=== PATIENT | male | born 1990 | race Caucasian/White ===

== ENCOUNTER 2022-12-27 11:50 | Emergency (ER) | payer OTHER, SELFPAY ==
--- NOTE | ~2022-12-27 | XR_ITS ---
EXAMINATION: XR KNEE, RIGHT CLINICAL INFORMATION: Right knee pain. COMPARISON: None available. TECHNIQUE: Four views of the right knee. FINDINGS: Alignment is anatomic. Joint spaces are maintained. 6 cm sclerotic focus posterior aspect of the proximal tibia. No bone destruction. No displaced fracture. Small suprapatellar joint effusion. XR/XR knee RT 3V IMPRESSION: No acute abnormality. 6 cm cortically based sclerotic focus posterior lateral tibia without underlying bone destruction. This is incompletely evaluated. If clinically indicated cross-sectional imaging could be performed.
[2022-12-27 12:39] VITALS: BP 150/105; PULSE 85; RESP 17; TEMP 36.8; O2SAT 98; BMI 33.4
--- NOTE | 2022-12-27 12:39 | ED_ITS ---
HPI - General Adult General Chief complaint: Extremity Problem Stated complaint: R knee inj Time Seen by Provider: 12/27/22 12:52 Source: patient Mode of arrival: ambulatory Limitations: no limitations History of Present Illness HPI narrative: 32-year-old male presents to ED for right medial knee pain. Patient states injuring knee yesterday while playing football. Patient states he was tackling the knee. Patient states pain on range of motion of knee. Patient states no fever, chills, obvious swelling or redness. Related Data Previous Rx's Medication Instructions Recorded naproxen 500 mg tablet 500 mg PO BID PRN pain 7 days #14 12/27/22 tabs prednisone 20 mg tablet 40 mg (2 x 20 mg) PO DAILY 5 days 12/27/22 #10 tabs Allergies Allergy/AdvReac Type Severity Reaction Status Date / Time No Known Allergies Allergy Verified 12/27/22 12:41 Review of Systems 2 Review of Systems: Right knee pain Yes all other systems are reviewed and are negative Physical Exam ED Vital Signs: Vital Signs - 24 hr 12/27/22 12:39 Temperature 98.3 F Pulse Rate 85 Respiratory Rate 17 Blood Pressure 150/105 H Pulse Oximetry 98 Oxygen Delivery Method Room Air BMI result Body Mass Index 33.4 Const General: cooperative, healthy appearing, comfortable, no acute distress, well developed, alert and awake Orientation/consciousness: oriented to person, oriented to place, oriented to time and patient oriented x3 HENMT Head: Yes normal to inspection, Yes No palpable skull fracture present, Yes normocephalic, Yes atraumatic and No abrasion Eyes General: appearance normal, both eyes and all related structures Neck Neck: Yes normal visual inspection, Yes full ROM, Yes no lymphadenopathy, Yes no meningeal signs, Yes trachea midline, Yes supple, No anterior neck swelling and No tender Chest Chest palpation & inspection: normal inspection of the chest and normal palpation of entire chest wall Resp Effort & Inspection: normal respiratory effort and able to speak in complete sentences Auscultation: clear to auscultation bilaterally Cardio Jugular venous distension: no JVD Heart sounds: S1 normal heart sound present and S2 normal heart sound present GI Inspection: Yes normal to inspection and No abdominal wall ecchymosis Palpation (GI): Soft to palpation, not firm, nontender, no guarding and not rigid General: No CVA tenderness and Yes no CVA tenderness Back/Spine/Pelvis Back: no CVA tenderness, No CVA tenderness and No back tenderness Skin General skin exam: no rashes or lesions noted, elasticity normal and turgor normal Neuro General: oriented to person, oriented to place, oriented to time, patient oriented x3, tone normal, moves all extremities, Normal light touch and pain sensation, no meningeal signs, no focal motor deficits, CN's II-XI intact bilaterally and normal sensation to monofilament Extrem General: Yes normal to inspection and Yes full ROM Knee images: 2 1. positive for tenderness on palpation and range of motion. Negative for crepitus, ecchymosis, deformity, swelling, or elasticity. Negative for redness or stiffness. Rest of extremity normal and motor/ neuro/vascular exam intact Psych Appearance: grossly normal, well kempt and not disheveled Course Course Course Narrative: RME performed by Nohemi Pearson PA-C. Patient is a 32 year old assigned male at presenting to the emergency department with right knee pain. Patient injured his knee climbing down stairs in June of 2022, felt a pop. Thought it was getting some what better and started his football season, got hit, felt / heard another pop in his right knee, and is now having worse pain. Imaging ordered. Patient placed back in the waiting room pending room availability and results. Medical Decision Making Medical Decision Making MDM Narrative: 32-year-old male presents to ED for right knee injury from playing football yesterday. Patient states hearing a pop. Patient states injury knee before in July but never follow up with the primary care per provider and never got imaging done in July. patient denies any head trauma or trauma to the body. X-ray negative for fractures but shows small suprapatellar joint effusion indicate possible meniscus ligament injury. Also sclerotic lesion. Patient made aware of sclerotic lesion of the posterior tibia. Patient knee already placed in his own Ron wrap. Patient given trust crutches and pain medication Differential Diagnosis Differential Diagnoses: The differential diagnosis associated with the presentation includes ( knee fracture, knee dislocation, patellar fracture, septic knee, knee sprain) Admission/Observation Consideration of admission/observation: Escalation of care including admission/observation considered Independent Interpretation I performed an independent interpretation of an: Plain X-Ray Radiology Impression Discussion of test interpretation with radiology: I have reviewed the radiologist's reading. External Record Review External record reviewed: Other (Prior ED visit) Prescription Management I considered prescription management with: Pain Medication Discharge Plan Discharge Clinical Impression: Knee sprain Patient Disposition: Home, Self-Care Instructions: Knee Sprain (ED), Crutch Instructions (ED), How to Use an Elastic Bandage (ED), Swollen Knee Joint (ED), R.I.C.E. Treatment (ED) Additional Instructions: you need to follow-up with orthopedic surgeon for MRI to evaluate for possible meniscus ligament tear. Also you need evaluation for sclerotic lesion seen on tibia as seen on x-ray. Continue using knee brace with elevation. He will be given crutches. Return to the ED immediately for any knee swelling, redness, fever, chills, stiffness, inability to walk, or any other concerning symptoms. Prescriptions: New naproxen 500 mg tablet 500 mg PO BID PRN (Reason: pain) 7 Days Qty: 14 0RF prednisone 20 mg tablet 40 mg PO DAILY 5 Days Qty: 10 0RF Referrals: [facility] [Provider Group] ( Right knee sprain. Possible meniscus ligament tear. X-ray shows sclerotic lesion on posterior tibia) Stand Alone Forms: Work/School Release Discharge Date/Time: 12/27/22 15:11 Print Language: Upper Sorbian
--- NOTE | 2022-12-27 15:11 | PC.NURSE ---
Given crutches with instructions. Patient uses well (has had h/o crutches in past)
== END 2022-12-27 15:11 | disposition home or self-care (01) ==
PROVIDERS: Emergency Provider Emergency Medicine; PCP Family Medicine
DX: S83.91XA Sprain of unspecified site of right knee, initial encounter (principal); X58.XXXA Exposure to other specified factors, initial encounter; Y93.61 Activity, american tackle football; Y92.321 Football field as the place of occurrence of the external cause; Y99.9 Unspecified external cause status
CPT/HCPCS: 73562; 99281; 99283

== ENCOUNTER 2023-04-30 09:38 | Emergency (ER) | payer OTHER, SELFPAY ==
[2023-04-30] VITALS (7 sets, daily range): BP systolic 123–141; BP diastolic 74–84; PULSE 64–90; RESP 16–18; TEMP 36.6–36.8; O2SAT 95–98; BMI 30.7
--- NOTE | ~2023-04-30 | CT_ITS ---
EXAMINATION: CT CERVICAL SPINE WITHOUT CONTRAST CLINICAL INFORMATION: Neck pain. COMPARISON: None available. TECHNIQUE: 2 mm thin axial and reformatted 2 mm thin sagittal and coronal images of cervical spine were obtained. DLP 806. This CT examination was performed using dose optimization techniques as appropriate, variously including the following: *Automated exposure control *Adjustment of mA and/or kV according to patient size (this includes techniques or standardized protocols for targeted exams where dose is matched to indication/reason for exam; i.e. extremities or head) *Use of iterative reconstruction technique DLP: 806 mGy-cm FINDINGS: There is mild straightening of cervical lordosis. The vertebral heights, alignment and disc heights are normal. There is mild deviation of cervical spine 2 left likely positional or scoliotic. The craniovertebral junction and the C1-C2 alignment is normal. The facet joints are symmetrical and normal.. There is mild rotary subluxation at the C1-C2 alignment. No visible acute fracture or dislocation seen. Prevertebral and paravertebral soft tissues are normal. Lung apices are clear. CT/CT cervical spine wo IV con IMPRESSION: Mild rotary subluxation C1-C2 alignment. No visible acute fracture or dislocation seen. Fleischner guidelines were followed.
--- NOTE | 2023-04-30 10:09 | ED.NECK ---
HPI - Neck Pain/Injury General Chief Complaint: Neck Pain/Injury Stated Complaint: WOKE UP W/NECK PAIN ON MOVEMENT PER EMS Time Seen by Provider: 04/30/23 10:20 Source: patient and RN notes reviewed Mode of arrival: ambulatory Limitations: no limitations History of Present Illness HPI Narrative: This is a 33-year-old male presenting to the emergency department for evaluation of left-sided neck pain since this morning. Patient states that he fell asleep on the couch and awoke at 4:00 a.m. in the morning with a stiff neck, he states that he stretched his neck, felt a pop, and fell back asleep. He awoke with severe left-sided neck pain worsening with movement. He states that he has had no recent trauma or injury to his neck. He states that he tried stretching his neck which did not help. He denies any similar symptoms in the past. Denies any headaches, fevers, rashes, photophobia, drowsiness, recent illness, dizziness, chest pain, shortness breast, abdominal pain, nausea, vomiting or diarrhea. Denies any numbness or tingling. No weakness. No other complaints or concerns at this time. MD complaint: neck pain Onset (ago): hour(s) Place: home Radiation: left lateral Severity: moderate Duration: constant Relieving factors: none Exacerbating factors: medication Associated symptoms: none Treatments prior to arrival: none Related Data Previous Rx's Medication Instructions Recorded naproxen 500 mg tablet 500 mg PO BID PRN pain 7 days #14 12/27/22 tabs prednisone 20 mg tablet 40 mg (2 x 20 mg) PO DAILY 5 days 12/27/22 #10 tabs Allergies Allergy/AdvReac Type Severity Reaction Status Date / Time No Known Allergies Allergy Verified 04/30/23 10:37 Review of Systems Review of Systems: Yes all other systems are reviewed and are negative Constitutional: Constitutional: Reports as per [facility] Past Medical History Attestation statement: The following information was validated with the patient. Social History Social History Alcohol intake: current Alcohol intake frequency: 0-2 drinks per day Alcohol type: beer Smoked in Last 30 Days: No Use of substances other than those prescribed or required for medical reasons: No Advance Directives: No Advance Directives Information Provided: No Physical Exam Vital Signs: Vital Signs: Last Vital Signs Temp 98 F 04/30/23 17:19 Pulse 74 04/30/23 17:19 Resp 18 04/30/23 17:19 BP 132/82 04/30/23 17:19 Pulse Ox 96 04/30/23 17:19 O2 Del Method Room Air 04/30/23 17:19 BMI result Body Mass Index 30.7 Const: General: cooperative, comfortable and no acute distress Orientation/consciousness: patient oriented x3 Limitations: no limitations HEENT: Head: Yes normal to inspection, Yes normocephalic and Yes atraumatic Ears: hearing grossly normal bilaterally General nose exam: Normal external nose present Face and sinus: Yes normal facial exam Mouth: Normal oral and palatal mucosa present, oropharynx normal and moist mucous membranes Throat: Yes posterior oropharynx normal Eyes: General: appearance normal, both eyes and all related structures Eyelids: Yes eyelids normal Conjunctivae: conjunctivae normal Sclerae: sclerae normal Pupils: Equal, round and reactive pupils present EOM: EOMs intact bilaterally Neck: Other: No midline cervical spine tenderness to palpation, tenderness to palpation along the trapezius and insertion site of the sternocleidomastoid muscle. Pain elicited with rotation of the neck to the left Neck: Yes normal visual inspection Lymphatic: no lymphadenopathy noted Chest: Chest palpation & inspection: normal inspection of the chest Resp: Effort & Inspection: normal respiratory effort and able to speak in complete sentences Auscultation: clear to auscultation bilaterally, no crackles, no rales, no rhonchi and no wheezes Cardio: Rate: regular rate Rhythm: regular rhythm Heart sounds: S1 normal heart sound present and S2 normal heart sound present GI: Inspection: Yes normal to inspection Skin: General skin exam: no rashes or lesions noted Trauma: no lacerations or abrasions Wounds: no wounds Neuro: General: patient oriented x3 and moves all extremities Cranial nerves: Yes Equal, round and reactive pupils present Extrem: General: Yes normal to inspection Right upper extremity: normal to inspection Left upper extremity: normal to inspection Right lower extremity: normal to inspection Left lower extremity: normal to inspection Course Reevaluation(s) Reevaluation #1: Patient still experiencing pain, however improved since arrival. Given significant pain to the left side of his neck, Dilaudid 2 mg po ordered. He has no neurologic deficits on examination, as long as he does not move his neck, his pain is well managed. Time: 13:43 Reevaluation #2: CT cervical spine as well as basic labs was ordered as patient was not responding after receiving oxycodone 5 mg, Dilaudid 2 mg p.o. and Valium 2 mg p.o.. Patient medicated with morphine 4 mg IV pending lab workup and CT cervical spine Time: 15:14 Reevaluation #3: CT of the cervical spine shows a C1-C2 subluxation. Basic labs revealing no leukocytosis, stable H&H, no inflammatory marker elevation. Patient immediately placed in cervical collar. Discussed findings with my attending physician, Dr. Cardona. Transfer initiated. [facility] refusing all transfers. Call out to [facility]. Patient will be an ED to ED transfer, accepting physician Dr. Fowler. Transfer of care initiated Time: 17:45 Medications Administered Discontinued Medications Generic Name Dose Route Start Last Admin Trade Name Freq PRN Reason Stop Dose Admin Diazepam 2 mg 04/30/23 10:21 04/30/23 10:36 Diazepam 2 Mg Tablet PO 04/30/23 10:22 2 mg ONCE ONE Administration Hydromorphone HCl 2 mg 04/30/23 13:43 04/30/23 13:56 Hydromorphone Hcl 2 Mg Tablet PO 04/30/23 13:44 2 mg ONCE ONE Administration Morphine Sulfate 4 mg 04/30/23 15:14 04/30/23 15:48 Morphine Sulfate 4 Mg/Ml Cartridge IVPUSH 04/30/23 15:15 4 mg ONCE ONE Administration Protocol Oxycodone HCl 5 mg 04/30/23 10:22 04/30/23 10:36 Oxycodone Hcl Immed Release 5 Mg Tablet PO 04/30/23 10:23 5 mg ONCE ONE Administration Medical Decision Making Medical Decision Making MDM Narrative: This is a 33-year-old male, with no known medical problems, presenting to the emergency department with complaints of acute left-sided neck pain status post this morning. Patient states that he fell asleep on the couch, woke up at 4:00 a.m. and cracked is neck, felt a pop however was able to return back to sleep. No recent trauma or injury. States that he fell asleep on the couch and woke up with severe left-sided neck pain. On arrival, vital signs within normal limits. Patient has no midline cervical spine tenderness. He has tenderness palpation along the left sternocleidomastoid muscle as well as left trapezius. Pain worsens with rotation of the neck towards the left. No meningeal signs. Patient's symptoms consistent with muscle spasm, will treat conservatively with muscle relaxants and pain medication and re-evaluate. Differential Diagnosis Differential Diagnoses: The differential diagnosis associated with the presentation includes Spasmodic torticollis, muscle spasm, cervical strain Lab Data 04/30/23 15:38 04/30/23 15:38 Labs: Lab Results 04/30/23 Range/Units 15:38 WBC 5.7 (4.8-10.8) X10*3/uL RBC 5.14 (4.60-5.80) X10*6/uL Hgb 15.7 (14.0-18.0) g/dl Hct 46.6 (42.0-52.0) % MCV 90.7 (80.0-98.0) fL MCH 30.5 (27.0-33.0) pg MCHC 33.7 (31.0-36.0) g/dl RDW 12.3 (11.0-16.0) % Plt Count 219 (160-400) X10*3/uL MPV 10.0 (9.4-12.4) fL Immature Gran % (Auto) 0.2 (0.0-0.4) % Neut % (Auto) 49.2 (45-73) % Lymph % (Auto) 38.8 (20-40) % Finney % (Auto) 10.1 (2-11) % Eos % (Auto) 1.2 (0-4) % Baso % (Auto) 0.5 (0-2) % Lymph # (Auto) 2.2 (1.2-4.9) X10*3/uL Finney # (Auto) 0.6 (0.1-1.2) X10*3/uL Eos # (Auto) 0.1 (0.0-0.4) X10*3/uL Baso # (Auto) 0.0 (0.0-0.2) X10*3/uL Abs Immat Gran (auto) 0.01 (0.00-0.03) X10*3/uL Absolute Neuts (auto) 2.8 (2.0-8.3) x10*3/uL Absolute Nucleated RBC 0.000 (0.0-0.012) X10*3/uL Nucleated RBC % (auto) 0.0 (0.0-0.2) /100WBC ESR 2 (0-15) MM/HR Sodium 143 (135-145) mmol/L Potassium 4.0 (3.3-5.1) mmol/L Chloride 110 H (96-108) mmol/L Carbon Dioxide 24 (22-29) mmol/L Anion Gap 13 (12-20) BUN 12 (9-16) mg/dL Creatinine 0.87 (0.5-1.4) mg/dL Estim Creat Clear Calc 159.7 Estimated GFR > 60 Random Glucose 78 (60-115) mg/dL Calcium 9.2 (8.4-10.2) mg/dL Total Bilirubin 1.1 H (0.0-1.0) mg/dL Direct Bilirubin 0.3 (0.0-0.5) mg/dL AST 23 (5-37) U/L ALT 25 (0-40) U/L Alkaline Phosphatase 60 (39-117) U/L C-Reactive Protein < 0.10 (< or = 0.50) mg/dL Total Protein 7.2 (6.5-8.0) g/dL Albumin 4.3 (3.5-5.0) g/dL Radiology Impression Discussion of test interpretation with radiology: I have reviewed the radiologist's reading. External Record Review External record reviewed: Inpatient record, Office record, Outpatient record, Prior outpatient labs, Prior outpatient radiology, Primary care record and Outside ED record Critical Care Time Critical Care Time Critical Care Time: Yes Total Critical Care Time: 40 Attestation: I have personally provided critical care time exclusive of time spent on separately billable procedures. Time includes review of lab data, radiology results, discussion with consultants, and monitoring for potential decompensation. Intervention performed as documented. Discharge Plan Discharge Clinical Impression: C1-C2 subluxation Patient Disposition: [facility] Transfer Details: ED to ED transfer > [facility] ED, accepting physician, Dr. Fowler Prescriptions: No Action naproxen 500 mg tablet 500 mg PO BID PRN (Reason: pain) 7 Days Qty: 14 0RF prednisone 20 mg tablet 40 mg PO DAILY 5 Days Qty: 10 0RF
[2023-04-30] MEDS: diazePAM 2 MG TABLET PO (10:36)
[2023-04-30] MEDS: oxyCODONE HCl Immed Release 5 MG TABLET PO (10:36)
[2023-04-30] MEDS: HYDROmorphone HCl 2 MG TABLET PO (13:56)
[2023-04-30 15:47] LABS: MANUAL DIFF FLAG NO
[2023-04-30] MEDS: Morphine Sulfate 4 MG/ML CARTRIDGE IVPUSH (15:48)
[2023-04-30 15:49] LABS: Basophils Percent Auto 0.5 % (0-2); Eosinophils Absolute Auto 0.1 X10*3/uL (0.0-0.4); Eosinophils Percent Auto 1.2 % (0-4); Hematocrit 46.6 % (42.0-52.0); Hemoglobin 15.7 g/dl (14.0-18.0); Imm Gran Abs Auto 0.01 X10*3/uL (0.00-0.03); Imm Gran Pct Auto 0.2 % (0.0-0.4); Lymphocytes Absolute Auto 2.2 X10*3/uL (1.2-4.9); Lymphocytes Percent Auto 38.8 % (20-40); Mean Corpuscular HGB Conc 33.7 g/dl (31.0-36.0); Mean Corpuscular Hemoglobin 30.5 pg (27.0-33.0); Mean Corpuscular Volume 90.7 fL (80.0-98.0); Monocytes Absolute Auto 0.6 X10*3/uL (0.1-1.2); Monocytes Percent Auto 10.1 % (2-11); Neutrophils Absolute Auto 2.8 x10*3/uL (2.0-8.3); Neutrophils Percent Auto 49.2 % (45-73); Platelet Count 219 X10*3/uL (160-400); Red Blood Count 5.14 X10*6/uL (4.60-5.80); Red Cell Distribution Width 12.3 % (11.0-16.0); White Blood Count 5.7 X10*3/uL (4.8-10.8)
[2023-04-30 16:04] LABS: Alanine Aminotransferase 25 U/L (0-40); Albumin Level 4.3 g/dL (3.5-5.0); Alkaline Phosphatase 60 U/L (39-117); Anion Gap 13 (12-20); Aspartate Amino Transferase 23 U/L (5-37); Bilirubin Direct 0.3 mg/dL (0.0-0.5); Bilirubin Total 1.1 mg/dL (0.0-1.0); Blood Urea Nitrogen 12 mg/dL (9-16); C Reactive Protein < 0.10 mg/dL (< or = 0.50); Calcium 9.2 mg/dL (8.4-10.2); Carbon Dioxide 24 mmol/L (22-29); Chloride 110 mmol/L (96-108); Creatinine Clr Calc Pharmacy 159.7; Estimated Glomerular Filt Rate > 60; Glucose Random 78 mg/dL (60-115); Sodium 143 mmol/L (135-145); Total Protein 7.2 g/dL (6.5-8.0)
[2023-04-30 16:30] LABS: Erythrocyte Sedimentation Rate 2 MM/HR (0-15)
[2023-04-30] MEDS: LORazepam 1 MG TABLET 2 MG PO (18:00)
--- NOTE | 2023-04-30 19:26 | PC.NURSE ---
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
== END 2023-04-30 18:50 | disposition short-term general hospital (02) ==
PROVIDERS: Physician Assistant Medical; Emergency Provider Emergency Medicine
DX: S13.120A Subluxation of C1/C2 cervical vertebrae, initial encounter (principal); X50.1XXA Overexertion from prolonged static or awkward postures, initial encounter; Y93.84 Activity, sleeping; Y92.018 Other place in single-family (private) house as the place of occurrence of the external cause; Y99.9 Unspecified external cause status
CPT/HCPCS: 36415; 72125; 80048; 80076; 85025; 85652; 86140; 96374; 99285; J2270